=== PATIENT | female | born 1950 | race Asian ===

== ENCOUNTER 2019-04-05 12:13 | Emergency (ER) | payer MEDICARE ==
[~2019-04-05] VITALS: Ht 167.6 cm; Wt 86.2 kg
[2019-04-05 12:13] VITALS: BP_SYST 114
--- NOTE | 2019-04-05 12:13 | NUR ---
Placed in room 01 . Placed on cardiac catheterization technologist, blood pressure machine and pulse oximeter. To gown for exam. Side rails up. Report given to ZHANG BUCHANAN.
--- NOTE | 2019-04-05 12:13 | NUR ---
Patient brought in by urogynecology physician ambulance c/o chest heaviness, palpitations, shortness of breath, and cold and clammy that started this morning. Patient's been sick for a week now. Lens Blocker stated that while en route, patient went into SVT - administered Adenosine x1, converted back to sinus. Patient is alert and oriented x4, respirations even and unlabored except for occasional coughing, speaking in full sentences and ambulating with a steady gait. VSS, pain level 6/10. Sister -in-law at bedside. Informed of the wait time. Instructed to notify ED staff for any changes in condition or worsening of symptoms. Patient verbalized understanding.
--- NOTE | 2019-04-05 12:14 | NUR ---
ER Dr. RAMOS at bedside examining patient.
[2019-04-05] MEDS ORDERED: NACL 0.9% 1,000 ML IV ONE (12:21)
--- NOTE | 2019-04-05 12:26 | NUR ---
ECG done at bedside as ordered by Dr. Norton. Patient tolerated the procedure well. Report given to
[2019-04-05] MEDS ORDERED: ONDANSETRON HCL 4 MG/2 ML VIAL IVP ONE (12:30)
--- NOTE | 2019-04-05 12:40 | NUR ---
senior technical specialist at bedside collecting blood specimen. Patient tolerated the procedure well.
--- NOTE | 2019-04-05 12:45 | NUR ---
Administered Zofran IVP as ordered by Dr. Carpio. Patient tolerated the medications well. See eMAR for details.
[2019-04-05 12:52] LABS: BASOPHILS % (AUTO) 0.3 % (0.0-2.0); EOSINOPHILS % (AUTO) 0.1 % (0.0-4.0); HEMATOCRIT 39.4 % (36-48); HEMOGLOBIN 12.7 g/dL (12.0-16.0); LYMPHOCYTES # (AUTO) 0.9 K/uL (1.0-5.5); LYMPHOCYTES % (AUTO) 13.8 % (20.5-51.5); MEAN CORPUSCULAR HEMOGLOBIN 28 pg (27-31); MEAN CORPUSCULAR HGB CONC 32 % (32-36); MEAN CORPUSCULAR VOLUME 85 fL (79.0-98.0); MONOCYTES # (AUTO) 0.8 K/uL (0.0-1.0); MONOCYTES % (AUTO) 13.2 % (1.7-9.3); NEUTROPHILS # (AUTO) 4.6 K/uL (1.8-7.7); NEUTROPHILS % (AUTO) 72.6 % (40.0-70.0); PLATELET COUNT (AUTO) 196 K/uL (130-430); RED BLOOD CELL COUNT(AUTO) 4.64 MIL/uL (4.2-6.2); RED CELL DISTRIBUTION WIDTH 13.3 % (9.0-15.0); WHITE BLOOD COUNT (AUTO) 6.3 K/uL (4.8-10.8)
[2019-04-05 13:04] LABS: CALCIUM 7.9 mg/dL (8.4-11.0); CREATININE 0.93 mg/dL (0.55-1.30); POTASSIUM 3.9 mmol/L (3.5-5.1)
[2019-04-05 13:10] LABS: ALBUMIN 3.3 g/dL (3.4-4.8); TOTAL BILIRUBIN 0.9 mg/dL (0.0-1.0)
[2019-04-05] MEDS ORDERED: OSELTAMIVIR PHOSPHATE 75 MG CAPSULE PO ONE (13:15)
--- NOTE | 2019-04-05 13:16 | NUR ---
Administered Tamiflu PO as ordered by Dr. Carpio. Patient tolerated the medications well. See eMAR for details.
--- NOTE | 2019-04-05 13:44 | NUR ---
cervantes called per patient insurance. number called
--- NOTE | 2019-04-05 13:50 | NUR ---
Flu swab done and taken down to the lab.
[2019-04-05] MEDS ORDERED: ATOR40TA68 PO (13:56)
[2019-04-05] MEDS ORDERED: ASPI-1153 PO (13:56)
--- NOTE | 2019-04-05 13:57 | NUR ---
Reconciled meds. Belonging's list done.
[2019-04-05] MEDS ORDERED: ASPIRIN 325 MG TABLET PO ONE (14:00)
--- NOTE | 2019-04-05 14:09 | NUR ---
Administered ASA 325mg PO as ordered by Dr. Carpio. Patient tolerated the medications well. See eMAR for details.
--- NOTE | 2019-04-05 15:14 | NUR ---
Ambulated to the bathroom with assistance.
--- NOTE | 2019-04-05 16:52 | NUR ---
Pt to be transferred to [facility] ED, Accepting physician is Dr. Peter, ETA [id number]. [phone]
[2019-04-05 17:19] VITALS: BP_SYST 111
--- NOTE | 2019-04-05 17:19 | NUR ---
Patient to be transferred to [facility]. Is being transferred due to higher level of care. Receiving facility has accepting physician and available space. ER physician Dr. Norton has signed transfer form. Patient or responsible libertarian has agreed to transfer and signed form. Patient belongings inventoried and will be sent with patient. Copy of nursing notes, lab reports, EKG, Physicians Orders and X-rays to be sent with patient. Report called to CHANEL Samson at receiving facility. Receiving physician is Dr. Peter. [facility]. ETA is now.
== END 2019-04-05 17:19 | disposition short-term general hospital (02) ==
LOC: SED 12:13
DX: J18.9 Pneumonia, unspecified organism (principal); R79.89 Other specified abnormal findings of blood chemistry; I47.1 Supraventricular tachycardia; R42 Dizziness and giddiness; E78.00 Pure hypercholesterolemia, unspecified
CPT/HCPCS: 36415; 71045; 80053; 83605; 84484; 85025; 86710; 87040; 93005; 96361; 96365; 96375; 99285; G9035; J1956; J2405; J7030